=== PATIENT | female | born 1995 | race Caucasian/White ===

== ENCOUNTER 2016-04-16 09:59 | Emergency (ER) | payer BC ==
[2016-04-16 11:10] VITALS: BP 122/86
--- NOTE | 2016-04-16 12:47 | UC ---
Respiratory Complaint HPI - HPI Summary HPI Summary: pt p/w with c/o cough that started the night before last night. coughis painful( abd muscles, throat and chest), productive of yellow sputum. comes in spasms, has been associated with gagging and interferes with sleep. pt throat only hurts when coughing. pt's boss has "walking pna." - History of Current Complaint Chief Complaint: UCGeneralIllness Stated Complaint: COUGH Time Seen by Provider: 04/16/16 12:24 Hx Obtained From: Patient Hx Last Menstrual Period: 03/29/16 ?: Yes Onset/Duration: Sudden Onset, Lasting Days - 1.5, Still Present Timing: Constant Severity Initially: Moderate Severity Currently: Moderate Character: Cough: Productive Aggravating Factors: Exertion, Deep Breaths, Recumbent Position Alleviating Factors: Upright Position Associated Signs And Symptoms: Positive: Dyspnea, Pleuritic Chest Pain, URI. Negative: Fever, Chills, Wheezing, Hemoptysis, Dizziness, Edema, Nasal Congestion, Hoarseness, Sinus Discomfort - Allergies/Home Medications Allergies/Adverse Reactions: Allergies Allergy/AdvReac Type Severity Reaction Status Date / Time seasonal Allergy Congestion Uncoded 07/18/15 20:36 PMH/Surg Hx/FS Hx/Imm Hx Previously Healthy: Yes - Surgical History Surgical History: Yes Surgery Procedure, Year, and Place: wisdom teeth - Family History Known Family History: Negative: Cardiac Disease, Hypertension, Diabetes - Social History Occupation: Employed Full-time Alcohol Use: None Substance Use Type: None Smoking Status (MU): Never Smoked Tobacco - Immunization History Vaccination Up to Date: Yes Review of Systems Constitutional: Fatigue Skin: Negative Eyes: Negative ENT: Sore Throat, Ear Ache Respiratory: Shortness Of Breath, Cough Cardiovascular: Chest Pain - peuritic Gastrointestinal: Other - pt denies abd pain. states that she only has muscle pain from excessive coughing Genitourinary: Negative Motor: Negative Neurovascular: Negative Musculoskeletal: Negative Neurological: Headache - mild Psychological: Negative All Other Systems Reviewed And Are Negative: Yes Physical Exam Triage Information Reviewed: Yes Appearance: Well-Appearing, No Pain Distress, Well-Nourished Vital Signs: Initial Vital Signs Temp 98.1 F 04/16/16 11:06 Pulse 92 04/16/16 11:06 Resp 14 04/16/16 11:06 BP 122/86 04/16/16 11:06 Pulse Ox 100 04/16/16 11:06 Vital Signs Reviewed: Yes Eyes: Positive: Conjunctiva Clear. Negative: Discharge ENT: Positive: Hearing grossly normal, Pharynx normal, TMs normal. Negative: Nasal congestion, Nasal drainage, Tonsillar swelling, Tonsillar exudate, Trismus , Muffled/hoarse voice Dental Exam: Normal Neck: Positive: Supple, Nontender, No Lymphadenopathy Respiratory: Positive: Lungs clear, Normal breath sounds - equal, No respiratory distress, No accessory muscle use, Expiration - prolonged. Negative : Crackles, Rhonchi, Wheezing Cardiovascular: Positive: RRR, No Murmur Musculoskeletal Exam: Normal Neurological: Positive: Alert, Muscle Tone Normal Psychological: Positive: Age Appropriate Behavior Skin Exam: Normal UC Diagnostic Evaluation - Laboratory O2 Sat by Pulse Oximetry: 100 Respiratory Course/Dx - Differential Dx/Diagnosis Differential Diagnosis/HQI/PQRI: Bronchitis, Lower Resp Infection Provider Diagnoses: uri, bronchospasm Discharge - Discharge Plan Condition: Stable Disposition: HOME Prescriptions: Albuterol HFA INHALER* [Ventolin HFA Inhaler*] 2 puff INH Q4H PRN #1 mdi PRN Reason: Sob/Wheezing Benzonatate CAP* [Tessalon CAP*] 100 mg PO TID #30 cap guaiFENesin ER TAB [Mucinex*] 600 mg PO BID PRN #1 box PRN Reason: Cough guaiFENesin/CODIEN 100MG-10MG* [Robitussin AC 100Mg-10Mg*] 5 - 10 ml PO BEDTIME PRN #100 udc MDD 10ml PRN Reason: Cough Patient Education Materials: Upper Respiratory Infection (ED), Bronchospasm (ED ) Referrals: Alexandria France [Primary Care Provider] - 1 Week (Follow up in 1 week if not improving)
== END 2016-04-16 12:51 | disposition home or self-care (01) ==
LOC: UCCORT 09:59
DX: J06.9 Acute upper respiratory infection, unspecified (principal); J98.01 Acute bronchospasm; R53.83 Other fatigue
CPT/HCPCS: 99212; G0463

== ENCOUNTER 2016-07-05 21:46 | Emergency (ER) | payer BC ==
[2016-07-05 22:11] VITALS: BP 125/73
--- NOTE | 2016-07-05 22:21 | UC ---
Abdominal Pain Female HPI - HPI Summary HPI Summary: C/o upper abdominal pain that wraps around to back that started @ 1500 today. Pt states it was worse earlier & that it has gotten better. Says it worsens w/ deep breaths & movement. Had nausea earlier that has resolved. Pt says she has had this pain before & it resolved spontaneously. She ate [employer] prior to episode. pain is 5/10 - improved now. most pain is focused on RUQ> nop nausea, although she did feel sweaty and nauseated at time of attack. This is the 3rd episdoe she has had in past 2 months. Dad had his GB removed. - History of Current Complaint Chief Complaint: UCAbdominalPain Stated Complaint: ABDOMINAL PAIN Time Seen by Provider: 07/05/16 22:20 Hx Last Menstrual Period: 07/03/16 Allergies/Adverse Reactions: Allergies Allergy/AdvReac Type Severity Reaction Status Date / Time seasonal Allergy Congestion Uncoded 07/05/16 21:55 Home Medications: Home Medications NK [No Home Medications Reported] 07/05/16 [History Confirmed 07/05/16] PMH/Surg Hx/FS Hx/Imm Hx Previously Healthy: Yes - Surgical History Surgical History: Yes Surgery Procedure, Year, and Place: wisdom teeth - Family History Known Family History: Positive: Diabetes, Other - lung ca Negative: Cardiac Disease, Hypertension - Social History Alcohol Use: None Substance Use Type: None Smoking Status (MU): Never Smoked Tobacco - Immunization History Vaccination Up to Date: Yes Review of Systems Skin: Negative Eyes: Negative ENT: Negative Respiratory: Negative Cardiovascular: Negative Gastrointestinal: Abdominal Pain Genitourinary: Negative Motor: Negative Neurovascular: Negative Musculoskeletal: Negative Neurological: Negative Psychological: Negative All Other Systems Reviewed And Are Negative: Yes Physical Exam Triage Information Reviewed: Yes Appearance: Pain Distress - mild -moderate Vital Signs: Initial Vital Signs Temp 98.9 F 07/05/16 21:56 Pulse 91 07/05/16 21:56 Resp 20 07/05/16 21:56 BP 125/73 07/05/16 21:56 Pulse Ox 100 07/05/16 21:56 Vital Signs Reviewed: Yes Eye Exam: Normal ENT Exam: Normal ENT: Positive: Pharynx normal, TMs normal Dental Exam: Normal Neck exam: Normal Neck: Positive: Supple, Nontender, No Lymphadenopathy Respiratory Exam: Normal Respiratory: Positive: Lungs clear, Normal breath sounds, No respiratory distress, No accessory muscle use Cardiovascular Exam: Normal Cardiovascular: Positive: RRR, No Murmur, Pulses Normal, Brisk Capillary Refill Abdomen Description: Positive: Soft, Other: - No LUQ or epigastric or lower quadrant tendereness. She does have RUQ tenderness and + Varner's sign.. Negative: Bruit, CVA Tenderness (R), CVA Tenderness (L), Distended, Guarding, Hernia @, Hepatomegaly, Peritoneal Signs, Pulsatile Mass Bowel Sounds: Positive: Present Musculoskeletal Exam: Normal Neurological Exam: Normal Psychological Exam: Normal Skin Exam: Normal Abd Pain Female Course/Dx - Course Course Of Treatment: RUQ pain, likely cholecystitis. pain has improved. Offered ER but she declines and prefers to see how pain goes overnight as it has improved. She agrees to go to ER if she gets another attack or sx worsen or do not improve any further over the next few hours, vomits or develops fevers/ chills/nausea. She understood me well and is agreeable with this plan. - Differential Dx/Diagnosis Differential Diagnosis: Constipation, Gall Bladder Disease, Irritable Bowel Syndrome, Renal Colic Provider Diagnoses: RUQ abdominal pain, cholecystitis Discharge - Discharge Plan Condition: Stable Disposition: HOME Patient Education Materials: Cholecystitis (ED) Referrals: Alexandria France [Primary Care Provider] - 1 Day Additional Instructions: If your symptoms worsen or not better overnight or develop a fever, then you should go to the ER. If not, call your PCP in the morning to be seen as you will need at least an ultrasound.
[2016-07-05] MEDS ORDERED: Acetaminophen TAB* 325 MG PO ONE (22:29)
== END 2016-07-05 22:45 | disposition home or self-care (01) ==
LOC: UCCORT 21:46
DX: R10.11 Right upper quadrant pain (principal); K81.9 Cholecystitis, unspecified
CPT/HCPCS: 99211; A9270-GY; G0463

== ENCOUNTER 2017-02-19 10:17 | Emergency (ER) | payer BC ==
[2017-02-19 10:47] VITALS: BP 131/71
--- NOTE | 2017-02-19 11:31 | UC ---
Throat Pain/Nasal Aramis HPI - HPI Summary HPI Summary: TWO NIGHT S OF EAR ACHE R>L. SWOLLEN TONSILS AND HEADACHE. NO KNOWN FEVER. NO RASHES. NO ABDOMINAL PAIN. - History of Current Complaint Chief Complaint: UCRespiratory Stated Complaint: SORE THROAT EAR PAIN COUGH HEAVY CHEST Time Seen by Provider: 02/19/17 10:23 Hx Obtained From: Patient Hx Last Menstrual Period: 02/12/17 Onset/Duration: Gradual Onset, Lasting Days Severity: Moderate Pain Intensity: 6 Pain Scale Used: 0-10 Numeric Cough: Nonproductive Associated Signs & Symptoms: Positive: Hoarseness - Epiglottits Risk Factors Epiglottis Risk Factors: Negative - Allergies/Home Medications Allergies/Adverse Reactions: Allergies Allergy/AdvReac Type Severity Reaction Status Date / Time seasonal Allergy Congestion Uncoded 02/19/17 10:47 Home Medications: Home Medications Ibuprofen TAB* [Motrin TAB* 600 MG] 600 mg PO Q12H PRN 02/19/17 [History Confirmed 02/19/17] Pseudoephedrine HCl [Decongestant] 60 mg PO ONCE PRN 02/19/17 [History Confirmed 02/19/17] PMH/Surg Hx/FS Hx/Imm Hx - Surgical History Surgical History: Yes Surgery Procedure, Year, and Place: wisdom teeth,gallbladder 06/2016 at [place] - Family History Known Family History: Positive: None, Diabetes, Other - lung ca Negative: Cardiac Disease, Hypertension - Social History Occupation: Student Lives: With Family Alcohol Use: Rare Substance Use Type: None Smoking Status (MU): Never Smoked Tobacco - Immunization History Vaccination Up to Date: Yes Review of Systems Constitutional: Negative Skin: Negative Eyes: Negative ENT: Sore Throat, Ear Ache Respiratory: Cough Cardiovascular: Negative Gastrointestinal: Negative Genitourinary: Negative Motor: Negative Neurovascular: Negative Musculoskeletal: Negative Neurological: Headache Psychological: Negative Is Patient Immunocompromised?: No All Other Systems Reviewed And Are Negative: Yes Physical Exam Triage Information Reviewed: Yes Appearance: No Pain Distress, Well-Nourished, Ill-Appearing - MILDLY Vital Signs: Initial Vital Signs Temp 98.1 F 02/19/17 10:40 Pulse 88 02/19/17 10:40 Resp 20 02/19/17 10:40 BP 131/71 02/19/17 10:40 Pulse Ox 100 02/19/17 10:40 Vital Signs Reviewed: Yes Eye Exam: Normal ENT: Positive: Pharyngeal erythema, TM red - RIGHT, Tonsillar swelling Dental Exam: Normal Neck exam: Normal Neck: Positive: Supple, Nontender, No Lymphadenopathy Respiratory Exam: Normal Respiratory: Positive: Chest non-tender, Lungs clear, Normal breath sounds, No respiratory distress, No accessory muscle use Cardiovascular Exam: Normal Cardiovascular: Positive: RRR, No Murmur, Pulses Normal, Brisk Capillary Refill Abdominal Exam: Normal Abdomen Description: Positive: Nontender, No Organomegaly, Soft Musculoskeletal Exam: Normal Neurological Exam: Normal Psychological Exam: Normal Skin Exam: Normal Throat Pain/Nasal Course/Dx - Differential Dx/Diagnosis Differential Diagnosis/HQI/PQRI: Otitis Media, Tonsillitis Provider Diagnoses: RIGHT OTITIS MEDIA; TONSILITIS Discharge - Discharge Plan Condition: Stable Disposition: HOME Prescriptions: Amoxicillin/Clavulanate TAB* [Augmentin TAB 875*] 875 mg PO BID #20 tab Patient Education Materials: Otitis Media (ED), Tonsillitis (ED) Referrals: Alexandria France [Primary Care Provider] -
== END 2017-02-19 11:00 | disposition home or self-care (01) ==
LOC: UCCORT 10:17
DX: H66.91 Otitis media, unspecified, right ear (principal); J03.90 Acute tonsillitis, unspecified
CPT/HCPCS: 99212; G0463

== ENCOUNTER 2017-05-06 16:28 | Emergency (ER) | payer BC ==
[2017-05-06] MEDS ORDERED: Ondansetron ODT TAB* 4 MG PO ONE (17:11)
[2017-05-06] MEDS ORDERED: Ibuprofen TAB* 400 MG PO ONE (17:12)
[2017-05-06 17:13] VITALS: BP 116/65
--- NOTE | 2017-05-06 17:51 | UC ---
HPI Febrile Illness - HPI Summary HPI Summary: Pt here w/ flu-like sx x 3 days. Rhinorrhea, cough, ST, fever, ISIDRO, nausea. Denies vomiting, diarrhea, ab pain, rash, neck stiffness. Took acetaminophen at 15:00. Has not been eating/drinking d/t nausea. LMP end of March 2017. Last sexually active 3 months ago and has had normal periods since. Not trying to get and does not feel she could be . - History of Current Complaint Chief Complaint: UCGeneralIllness Time Seen by Provider: 05/06/17 17:40 Hx Obtained From: Patient Hx Last Menstrual Period: BEGINNING OF APR. Pain Intensity: 7 - Allergy/Home Medications Allergies/Adverse Reactions: Allergies Allergy/AdvReac Type Severity Reaction Status Date / Time seasonal Allergy Congestion Uncoded 05/06/17 17:01 Home Medications: Home Medications Acetaminophen [Tylenol Extra Strength] 1,000 mg PO Q6H PRN 05/06/17 [History Confirmed 05/06/17] D-Methorphan/PE/Acetaminophen [Daytime Cold-Flu Softgel] 2 each PO DAILY PRN [History Confirmed 05/06/17] PMH/Surg Hx/FS Hx/Imm Hx Previously Healthy: Yes - Surgical History Surgical History: Yes Surgery Procedure, Year, and Place: wisdom teeth,gallbladder 06/2016 at [place] - Family History Known Family History: Positive: None, Diabetes, Other - lung ca Negative: Cardiac Disease, Hypertension - Social History Occupation: Employed Full-time Lives: With Family Alcohol Use: Rare Substance Use Type: None Smoking Status (MU): Never Smoked Tobacco - Immunization History Vaccination Up to Date: Yes Review of Systems Constitutional: Fever, Fatigue ENT: Sore Throat, Ear Ache, Nasal Discharge Respiratory: Cough Cardiovascular: Negative Gastrointestinal: Nausea Motor: Negative Neurovascular: Negative Musculoskeletal: Arthralgia Neurological: Headache Psychological: Negative Is Patient Immunocompromised?: No All Other Systems Reviewed And Are Negative: Yes Physical Exam Triage Information Reviewed: Yes Appearance: No Pain Distress, Ill-Appearing - appears mildly ill, fatigued, Obese Vital Signs: Initial Vital Signs Temp 100.8 F 05/06/17 17:04 Pulse 120 05/06/17 17:04 Resp 24 05/06/17 17:04 BP 116/65 05/06/17 17:04 Pulse Ox 98 05/06/17 17:04 Eye Exam: Normal ENT: Positive: Hearing grossly normal, Pharynx normal - mucosa moist, Nasal congestion, TMs normal. Negative: Nasal drainage, Tonsillar swelling, Tonsillar exudate, Trismus, Muffled voice, Hoarse voice, Sinus tenderness Neck exam: Normal Neck: Positive: Supple, Nontender, No Lymphadenopathy Respiratory Exam: Normal Respiratory: Positive: Lungs clear, Normal breath sounds. Negative: Crackles, Rhonchi, Stridor, Wheezing Cardiovascular: Positive: No Murmur, Tachycardia Abdominal Exam: Normal Abdomen Description: Positive: Nontender, No Organomegaly, Soft Bowel Sounds: Positive: Present Musculoskeletal Exam: Normal Musculoskeletal: Positive: Strength Intact Neurological Exam: Normal Neurological: Positive: Alert Psychological Exam: Normal Skin Exam: Normal Re-Evaluation - Re-Evaluation First Eval Change: Improved - nausea resovled w/ zofran, other sx improving slightly w/ ibuprofen Course/Dx - Diagnoses Clinic Provider Diagnoses: influenza A Discharge - Discharge Plan Condition: Stable Disposition: HOME Prescriptions: Oseltamivir CAP* [Tamiflu CAP*] 75 mg PO BID #10 cap Patient Education Materials: Influenza (ED) Forms: *Work Release Referrals: Alexandria France [Primary Care Provider] - Additional Instructions: May try the following for comfort care: Perform nasal wash/netti pot 2 x day with 8 ounces of warm water + 1/4 teaspoon of salt or saline nasal spray as needed Perform throat gargles with warm salt water as needed Drink 60+ ounces of water daily Sleep 8+ hours per night Avoid Dairy and sugar Drink hot herbal/decaf tea with lemon & honey Drink chicken broth (preferably organic, free range chicken) Use a humidifier in your house, but especially near bed at night. You may also keep home temperature at 68F or less. Try a facial steam with or without eucalyptus essential oil or Sal's vapor rub for decongestion. Cough drops Avoid smoke, candles, perfumes/colonge, air fresheners, scented lotions, etc Consider taking Vitamin D3 5,000iu and Vitamin C 1,000mg every day during illness *If you develop shortness of breath, high fever, intractable vomiting/diarrhea, chest pain, dizziness or syncope, go to ED
== END 2017-05-06 17:59 | disposition home or self-care (01) ==
LOC: UCCORT 16:28
DX: J10.1 Influenza due to other identified influenza virus with other respiratory manifestations (principal)
CPT/HCPCS: 87502; 99211; A9270-GY; G0463

== ENCOUNTER 2017-06-08 19:28 | Emergency (ER) | payer BC, OTHER ==
[2017-06-08 20:35] VITALS: BP 139/65
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
== END 2017-06-08 21:33 | disposition home or self-care (01) ==
LOC: UCCORT 19:28
DX: S06.0X0A Concussion without loss of consciousness, initial encounter (principal); W50.0XXA Accidental hit or strike by another person, initial encounter; Y92.511 Restaurant or cafe as the place of occurrence of the external cause
CPT/HCPCS: 99211; G0463

== ENCOUNTER 2017-11-14 14:00 | Emergency (ER) | payer SELFPAY ==
[2017-11-14 15:48] VITALS: BP 156/70
--- NOTE | 2017-11-14 15:56 | UC ---
Lower Extremity/Ankle HPI - HPI Summary HPI Summary: C/O right foot pain with dropping a piece of wood on it 2 days ago. - History of Current Complaint Chief Complaint: UCLowerExtremity Stated Complaint: RIGHT FOOT INJURY Time Seen by Provider: 11/14/17 15:51 Hx Obtained From: Patient Hx Last Menstrual Period: 10/24/17 ?: No Onset/Duration: Sudden Onset - Wednesday night, Still Present Severity Initially: Severe Severity Currently: Mild Pain Intensity: 3 Aggravating Factor(s): Standing, Ambulation Alleviating Factor(s): Rest, Elevation Able to Bear Weight: Yes - Allergies/Home Medications Allergies/Adverse Reactions: Allergies Allergy/AdvReac Type Severity Reaction Status Date / Time No Known Allergies Allergy Verified 11/14/17 15:48 PMH/Surg Hx/FS Hx/Imm Hx Previously Healthy: Yes - Surgical History Surgical History: Yes Surgery Procedure, Year, and Place: [facility] 06/2016 at [place] - Family History Known Family History: Positive: Hypertension, Diabetes, Other - lung ca Negative: Cardiac Disease - Social History Occupation: Employed Full-time Lives: Alone Alcohol Use: Occasionally Substance Use Type: None Smoking Status (MU): Never Smoked Tobacco - Immunization History Vaccination Up to Date: Yes Review of Systems ENT: Nasal Discharge - with seasonal allergies. Musculoskeletal: Arthralgia - right foot Neurological: Paresthesia Is Patient Immunocompromised?: No All Other Systems Reviewed And Are Negative: Yes Physical Exam Triage Information Reviewed: Yes Appearance: Pain Distress - moderate, Obese Vital Signs: Initial Vital Signs Temp 97.5 F 11/14/17 15:42 Pulse 95 11/14/17 15:42 Resp 16 11/14/17 15:42 BP 156/70 11/14/17 15:42 Pulse Ox 99 11/14/17 15:42 Vital Signs Reviewed: Yes Eyes: Positive: Conjunctiva Clear Neck exam: Normal Respiratory Exam: Normal Cardiovascular Exam: Normal Musculoskeletal: Positive: Strength Intact, ROM Intact, Other: - Tender lateral right foot over the 5th metatarsal, shooting electric type pain up and down the leg Neurological: Positive: Other: - Hypersensitive to pinprick right lateral foot distal to the trauma into the 4th and 5th toes. Psychological Exam: Normal Skin Exam: Normal Lower Extremity Course/Dx - Differential Dx/Diagnosis Differential Diagnosis/HQI/PQRI: Contusion, Fracture (Closed), Sprain Provider Diagnoses: Contusion right foot. Neuritis Discharge - Sign-Out/Discharge Documenting (check all that apply): Patient Departure All imaging exams completed and their final reports reviewed: No Studies - Discharge Plan Condition: Stable Disposition: HOME Prescriptions: Gabapentin CAP(*) [Neurontin 300 CAP(*)] 300 mg PO BEDTIME #30 cap Patient Education Materials: Contusion in Adults (ED) Referrals: Alexandria France [Primary Care Provider] - Additional Instructions: GABAPENTIN: Gabapentin is an anti-seizure medication that is more often used for nerve pain. It helps to stabilize the nerve to stop the pain. Its primary side effect is sedation which will improve over time. Most people will start with only one capsule 1 to 2 hours before bed, but if your pain is more severe you may want to start with one capsule twice a day. If the pain is still an issue after another 1-2days the dose may be increased to a maximum of 1 capsule 3 times a day. Decrease the dose by one capsule a day if there is excessive sedation or it is not working. You can also decrease it to discontinue it if the pain is resolving. Nerve Contusion: A bruised nerve causes the nerve to be irritated and extra sensitive to all sensations. Ice can make it feel worse. Nain wraps frequently aren't tolerated either. It may take weeks to resolve. - Billing Disposition and Condition Condition: STABLE Disposition: Home
== END 2017-11-14 16:10 | disposition home or self-care (01) ==
LOC: UCCORT 14:00
DX: S90.31XA Contusion of right foot, initial encounter (principal); W20.8XXA Other cause of strike by thrown, projected or falling object, initial encounter; Y93.9 Activity, unspecified; Y92.9 Unspecified place or not applicable; M79.2 Neuralgia and neuritis, unspecified
CPT/HCPCS: 99212; G0463

== ENCOUNTER 2018-04-20 16:06 | Emergency (ER) | payer BC ==
[2018-04-20 16:31] VITALS: BP 128/72
[2018-04-20 17:23] LABS: Influenza A Molecular NEGATIVE (Negative); Influenza B Molecular NEGATIVE (Negative)
--- NOTE | 2018-04-20 17:56 | UC ---
UC General HPI - HPI Summary HPI Summary: 2 day hx cough, head and chest congestion, sob. + nausea, body aches, and chills x 2 days. No asthma. - History of Current Complaint Chief Complaint: UCGeneralIllness Stated Complaint: FEVER,COLD SWEATS,COUGH,NAUSEA Time Seen by Provider: 04/20/18 17:50 Hx Obtained From: Patient Hx Last Menstrual Period: 04/18/18 Timing: Constant Pain Intensity: 5 Associated Signs & Symptoms: Negative: Fever - Allergy/Home Medications Allergies/Adverse Reactions: Allergies Allergy/AdvReac Type Severity Reaction Status Date / Time No Known Allergies Allergy Verified 04/20/18 16:28 PMH/Surg Hx/FS Hx/Imm Hx - Additional Past Medical History Additional PMH: PCOS - Surgical History Surgical History: Yes Surgery Procedure, Year, and Place: gallbladder 06/2016 at [place] - Family History Known Family History: Positive: Hypertension, Diabetes, Other - lung ca Negative: Cardiac Disease - Social History Alcohol Use: Occasionally Substance Use Type: None Smoking Status (MU): Never Smoked Tobacco Have You Smoked in the Last Year: No - Immunization History Vaccination Up to Date: Yes Review of Systems All Other Systems Reviewed And Are Negative: Yes Constitutional: Positive: Chills Skin: Positive: Negative Eyes: Positive: Negative ENT: Positive: Sinus Congestion Respiratory: Positive: Shortness Of Breath, Cough Cardiovascular: Positive: Negative Gastrointestinal: Positive: Nausea Genitourinary: Positive: Negative Motor: Positive: Negative Neurovascular: Positive: Negative Musculoskeletal: Positive: Myalgia Neurological: Positive: Negative Psychological: Positive: Negative Is Patient Immunocompromised?: No Physical Exam Triage Information Reviewed: Yes Appearance: Well-Appearing Vital Signs: Initial Vital Signs Temp 97.9 F 04/20/18 16:27 Pulse 97 04/20/18 16:27 Resp 16 04/20/18 16:27 BP 128/72 04/20/18 16:27 Pulse Ox 99 04/20/18 16:27 Vital Signs Reviewed: Yes Eyes: Positive: Conjunctiva Clear ENT: Positive: Pharynx normal, Nasal congestion, TMs normal. Negative: Nasal drainage, Sinus tenderness Neck: Positive: Supple, Nontender, No Lymphadenopathy Respiratory: Positive: No respiratory distress, Decreased breath sounds. Negative: Crackles, Rhonchi, Wheezing Cardiovascular: Positive: RRR, No Murmur Abdomen Description: Positive: Nontender, No Organomegaly, Soft Bowel Sounds: Positive: Present Musculoskeletal: Positive: ROM Intact Neurological: Positive: Alert Psychological: Positive: Age Appropriate Behavior Skin Exam: Normal Diagnostics - Laboratory Diagnostic Studies Completed/Ordered: rapid flu=negative Course/Dx - Differential Dx - Multi-Symptom Differential Diagnoses: Other - uri, bronchitis, influenza, pneumonia. - Diagnoses Provider Diagnosis: URI (upper respiratory infection), Bronchitis Discharge - Sign-Out/Discharge Documenting (check all that apply): Patient Departure All imaging exams completed and their final reports reviewed: No Studies - Discharge Plan Condition: Stable Disposition: HOME Prescriptions: Albuterol HFA INHALER* [Ventolin HFA Inhaler*] 2 puff INH Q6H #1 mdi Patient Education Materials: Upper Respiratory Infection (DC), Acute Bronchitis (ED) Referrals: Alexandria France [Primary Care Provider] - 7 Days - Billing Disposition and Condition Condition: STABLE Disposition: Home
== END 2018-04-20 18:22 | disposition home or self-care (01) ==
LOC: UCCORT 16:06
DX: J06.9 Acute upper respiratory infection, unspecified (principal); J40 Bronchitis, not specified as acute or chronic; M79.10 Myalgia, unspecified site; R11.0 Nausea
CPT/HCPCS: 99212; G0463

== ENCOUNTER 2018-10-28 12:01 | Emergency (ER) | payer BC ==
[2018-10-28 12:24] VITALS: BP 146/95
--- NOTE | 2018-10-28 12:34 | UC ---
Abdominal Pain Female HPI - HPI Summary HPI Summary: 22 year old with abdominal pain. c/o L sided abdominal pain since she woke up wed morning. She indicates pain as being on her lower L side and radiates into her back and lower abdomen. Denies any urinary symptoms or fever. Last BM was last night which she states "was normal" for her. Pain worse with pressure and taking a deep breath. She states a hx of PCOS with irregular menses, had spotting bleeding on Tues and none since. Patient states pain is about a 6 out of 10. Some mild nausea but no vomiting. She states the pain is on her left lower quadrant as well as her left lateral lower flank. It has started to radiate across her lower abdomen. It has been worsening since yesterday. She has been some alternating diarrhea with constipation the last few days. [ End ] - History of Current Complaint Chief Complaint: UCAbdominalPain Stated Complaint: LEFT SIDE ABD/BACK PAIN X 3 DAYS Time Seen by Provider: 10/28/18 12:25 Hx Obtained From: Patient Hx Last Menstrual Period: 10/25/18 Onset/Duration: Gradual Onset Pain Intensity: 6 Allergies/Adverse Reactions: Allergies Allergy/AdvReac Type Severity Reaction Status Date / Time No Known Allergies Allergy Verified 10/28/18 12:24 Home Medications: Home Medications Naproxen Sodium [Naproxen 550 mg tab] 550 mg PO ONCE PRN 10/28/18 [History Confirmed 10/28/18] PMH/Surg Hx/FS Hx/Imm Hx Previously Healthy: Yes Other GI/ History: PCOS - Surgical History Surgical History: Yes Surgery Procedure, Year, and Place: [facility] 06/2016 at [place] - Family History Known Family History: Positive: Hypertension, Diabetes, Other - lung ca Negative: Cardiac Disease - Social History Alcohol Use: Occasionally Substance Use Type: None Smoking Status (MU): Never Smoked Tobacco Have You Smoked in the Last Year: No - Immunization History Vaccination Up to Date: Yes Review of Systems All Other Systems Reviewed And Are Negative: Yes Constitutional: Positive: Chills. Negative: Fever Gastrointestinal: Positive: Abdominal Pain, Diarrhea, Nausea. Negative: Vomiting Genitourinary: Positive: Negative Is Patient Immunocompromised?: No Physical Exam Triage Information Reviewed: Yes Appearance: Well-Appearing, No Pain Distress, Well-Nourished Vital Signs: Initial Vital Signs Temp 97.7 F 10/28/18 12:17 Pulse 100 10/28/18 12:17 Resp 16 10/28/18 12:17 BP 146/95 10/28/18 12:17 Pulse Ox 100 10/28/18 12:17 Vital Signs Reviewed: Yes Eye Exam: Normal ENT Exam: Normal Dental Exam: Normal Neck exam: Normal Neck: Positive: 1 Respiratory Exam: Normal Cardiovascular Exam: Normal Abdominal Exam: Normal Abdomen Description: Positive: No Organomegaly, Soft, Other: - Mild left lateral abdominal discomfort to palpation. bilateral lower quadrant tenderness to palpation but worse and moderate at left lower quadrant. No pain to palpation of the upper quadrants. Normal bowel sounds. No rebound tenderness.. Negative: CVA Tenderness (R), CVA Tenderness (L), Distended, Guarding Musculoskeletal Exam: Normal Neurological Exam: Normal Psychological Exam: Normal Skin Exam: Normal Abd Pain Female Course/Dx - Course Course Of Treatment: Based on symptoms persisting and worsening there is concern for potential diverticulitis or Abscess. Also Thought about Musculoskeletal Injury but She Is Becoming Increasingly More Uncomfortable in the Room. With Left Lower Quadrant Tenderness a CT Scan Was Ordered to Evaluate for Diverticulitis. CT shows diverticulitis. Treat at this time. Given antibiotics. She is aware of side effects of antibiotics and agreeable to plan. If symptoms worsen go to emergency room. - Differential Dx/Diagnosis Differential Diagnosis: Appendicitis, Constipation, Diverticulitis, Irritable Bowel Syndrome, Ovarian Cyst, Peptic Ulcer Disease, Renal Colic Provider Diagnosis: Diverticulitis Discharge - Sign-Out/Discharge Documenting (check all that apply): Patient Departure All imaging exams completed and their final reports reviewed: Yes - Discharge Plan Condition: Good Disposition: HOME Prescriptions: Ciprofloxacin TAB* [Cipro 500 MG TAB*] 500 mg PO BID #20 tab metroNIDAZOLE [Flagyl 500 MG TAB] 500 mg PO TID #30 tab Patient Education Materials: Diverticulitis (ED) Forms: *Work Release Referrals: Alexandria France [Primary Care Provider] - 3 Days - Billing Disposition and Condition Condition: GOOD Disposition: Home
[2018-10-28] MEDS ORDERED: Ketorolac INJ* 30 MG/ML 1 ML VIAL IM ONE (13:05)
== END 2018-10-28 14:14 | disposition home or self-care (01) ==
LOC: UCCORT 12:01
DX: K57.32 Diverticulitis of large intestine without perforation or abscess without bleeding (principal)
CPT/HCPCS: 74176; 81003; 84702; 87086; 96372; 99212; G0463; J1885

== ENCOUNTER 2019-05-10 15:24 | Emergency (ER) | payer BC ==
[2019-05-10 16:10] VITALS: BP 130/81
[2019-05-10 16:29] LABS: Influenza B Molecular POSITIVE (Negative)
--- NOTE | 2019-05-10 16:45 | UC ---
FLU HPI - HPI Summary HPI Summary: 23 y/o female presents to the urgent care c/o sore throat, "nasty cough", B/L ears pressure, nasal congestion, upset stomach for the past 2 days. She has taken Dayquill PO to alleviate symptoms. Pt has been drinking fluids, but has decrease appetite. Sore throat and body aches is 5/10. Pt denies dizziness, SOB , chest pain, rash, neck pain,N/V/D. - History of Current Complaint Chief Complaint: UCGeneralIllness Stated Complaint: COUGH,B/L EAR COMPLAINT Time Seen by Provider: 05/10/19 16:41 Hx Obtained From: Patient Hx Last Menstrual Period: 05/02/19 ?: No Onset/Duration: Gradual Onset, Lasting Days - 2 days, Still Present Severity Currently: Mild Severity Initially: Moderate Pain Intensity: 5 - sore throat/body aches Pain Scale Used: 0-10 Numeric Associated Signs & Symptoms: Positive: Myalgia, Cough - dry, Sore Throat, Nasal Congestion - clear, Headache, Diarrhea - mild - Risk Factors Influenza Risk Factors: Negative - Allergy/Home Medications Allergies/Adverse Reactions: Allergies Allergy/AdvReac Type Severity Reaction Status Date / Time No Known Allergies Allergy Verified 05/10/19 16:10 Home Medications: Home Medications Oseltamivir CAP* [Tamiflu CAP*] 75 mg PO BID #10 cap 05/10/19 [Rx] PMH/Surg Hx/FS Hx/Imm Hx Previously Healthy: Yes Other Endocrine History: PCOS - Surgical History Surgical History: Yes Surgery Procedure, Year, and Place: gallbladder 06/2016 at [place] - Family History Known Family History: Positive: Hypertension, Diabetes, Other - lung ca Negative: Cardiac Disease - Social History Occupation: Employed Full-time Lives: With Family Alcohol Use: Occasionally Substance Use Type: None Smoking Status (MU): Never Smoked Tobacco Have You Smoked in the Last Year: No - Immunization History Vaccination Up to Date: Yes Review of Systems All Other Systems Reviewed And Are Negative: Yes Constitutional: Positive: Chills, Fatigue, Other - bidy aches Skin: Positive: Negative Eyes: Positive: Negative ENT: Positive: Sore Throat, Nasal Discharge - clear, Sinus Congestion Respiratory: Positive: Cough - dry Cardiovascular: Positive: Negative Gastrointestinal: Positive: Negative Genitourinary: Positive: Negative Motor: Positive: Negative Neurovascular: Positive: Negative Musculoskeletal: Positive: Myalgia Neurological/Mental Status: Positive: Headache Psychological: Positive: Negative Is Patient Immunocompromised?: No Physical Exam - Summary Physical Exam Summary: VITAL SIGNS: Reviewed. GENERAL: Patient is a well developed and nourished obese female who is sitting comfortably in the examining table. Patient is not in any acute respiratory distress. HEAD AND FACE: No signs of trauma. No ecchymosis, hematomas or skull depressions. No sinus tenderness. EYES: PERRLA, EOMI x 2, No injected conjunctiva, no nystagmus. No photophobia. EARS: Hearing grossly intact. Ear canals and tympanic membranes are within normal limits. MOUTH: Positive pharynx with mild erythema, no exudates, No B/L tonsillar enlargement , no exudate. Uvula in midline. edematous nasal mucosa w/ clear nasal discharge, clear PND NECK: Supple, trachea is midline, Positive anterior cervical lymphadenopathy, no JVD, no carotid bruit, no c-spine tenderness, neck with full ROM. No meningeal signs, no Kernig's or brudzinskis signs. CHEST: Symmetric, no tenderness at palpation LUNGS: Clear to auscultation bilaterally. No wheezing or crackles. CVS: Regular rate and rhythm, S1 and S2 present, no murmurs or gallops appreciated. ABDOMEN: Soft, non-tender. No signs of distention. No rebound no guarding, and no masses palpated. Bowel sounds are normal. EXTREMITIES: FROM in all major joints, no edema, no cyanosis or clubbing. NEURO: Alert and oriented x 3. No acute neurological deficits. Pt follows commands. SKIN: Dry and warm Triage Information Reviewed: Yes Vital Signs: Initial Vital Signs Temp 97.8 F 05/10/19 16:07 Pulse 85 05/10/19 16:07 Resp 18 05/10/19 16:07 BP 130/81 05/10/19 16:07 Pulse Ox 100 05/10/19 16:07 Flu Course/Dx - Course Course Of Treatment: 23 y/o female presents to the urgent care c/o sore throat, "nasty cough", B/L ears pressure, nasal congestion, upset stomach for the past 2 days. She has taken Dayquill PO to alleviate symptoms. Pt has been drinking fluids, but has decrease appetite. Sore throat and body aches is 5/10. Pt denies dizziness, SOB , chest pain, rash, neck pain,N/V/D. Hx obtained. Pt with URI on examination. Rapid strep ordered, result: negative.Influenza A&B ordered: result: Influenza B positive.Pt Rx Tamiflu and ibuprofen PO to alleviate symptoms. Advised on hand washing and wearing a mask to avoid spreading. Pt advised to rest, increase fluid intake, eat well and avoid strenuous exercise. .If symptoms do not improve or worsen advised to return to the urgent care or f/u with her PCP for further evaluation and treatment. Pt understood and agreed - Differential Dx/Diagnosis Differential Diagnosis/HQI/PQRI: Bronchitis, Influenza, Pneumonia, Upper Respiratory Infection Provider Diagnosis: Influenza B Discharge ED - Sign-Out/Discharge Documenting (check all that apply): Patient Departure - D/C home All imaging exams completed and their final reports reviewed: No Studies - Discharge Plan Condition: Stable Disposition: HOME Prescriptions: Oseltamivir CAP* [Tamiflu CAP*] 75 mg PO BID #10 cap Patient Education Materials: Influenza (ED) Forms: *Work Release Referrals: Alexandria France [Primary Care Provider] - 3 Days Additional Instructions: 1- Please take the full course of the antiviral to avoid resistance. Encourage hand washing and wear a mask to avoid spreading. 2-Please continue taking Tylenol PO q6-8hrs prn as instructed after meals to alleviate fever, and sore throat. Increase fluid intake, eat well, rest and avoid strenuous exercise 3-If symptoms do not improve or worsen please return to the urgent care or f/u with your PCP in 2 days for further evaluation and treatment. - Billing Disposition and Condition Condition: STABLE Disposition: Home
== END 2019-05-10 17:04 | disposition home or self-care (01) ==
LOC: UCCORT 15:24
DX: J10.1 Influenza due to other identified influenza virus with other respiratory manifestations (principal)
CPT/HCPCS: 87651; 99212; G0463

== ENCOUNTER 2023-11-03 22:07 | Inpatient (IN) ==
[2023-11-03 23:11] LABS: ABS Basophils 0.2 10^3/uL (0.0-0.1); ABS Eosinophils 0.1 10^3/uL (0.0-0.5); ABS Lymphocytes 3.6 10^3/uL (1.0-4.8); ABS Monocytes 0.7 10^3/uL (0.0-0.9); ABS Neutrophils 6.6 10^3/uL (1.5-7.6); Eosinophil % 1.1 %; Hematocrit 38.1 % (35-45); Hemoglobin 12.9 g/dL (11.5-14.3); Lymphocyte % 31.8 %; Mean Corpuscular Hemoglobin 28.5 pg (27-33); Mean Corpuscular Hgb Conc 33.9 g/dL (31-36); Mean Corpuscular Volume 84.1 fL (80-97); Mean Platelet Volume 8.4 fL (7.5-11.2); Platelet Count 348 10^3/uL (150-450); Red Blood Count 4.53 10^6/uL (3.63-4.92); Red Cell Distribution Width 14.3 % (12-17); White Blood Count 11.2 10^3/uL (3.8-11.8)
[2023-11-03 23:37] LABS: Urine Benzodiazepine Screen None Detected (None Detect); Urine Cannabinoids Screen None Detected (None Detect); Urine Opiates Screen None Detected (None Detect)
[2023-11-03 23:38] LABS: ALT 54 U/L (7-52); AST 29 U/L (13-39); Acetaminophen < 15 mcg/mL; Albumin 4.8 g/dL (3.2-5.2); Albumin/Globulin Ratio 1.7 (1-3); Alcohol, S < 13 mg/dL (<13); Alkaline Phosphatase 60 U/L (35-149); Anion Gap 9 mmol/L (2-16); Blood Urea Nitrogen 11 mg/dL (6-24); CO2 Carbon Dioxide 23 mmol/L (22-32); Calcium 9.8 mg/dL (8.6-10.3); Chloride 105 mmol/L (101-111); Globulin 2.9 g/dL (2-4); Glucose 99 mg/dL (70-100); Salicylate < 2.50 mg/dL (<30); Sodium 137 mmol/L (135-145); Total Bilirubin 0.3 mg/dL (0.2-1.0); Total Protein 7.7 g/dL (6.4-8.9)
[2023-11-03 23:42] LABS: Urine Appearance Turbid; Urine Specific Gravity 1.021 (1.002-1.030)
[2023-11-03 23:43] LABS: Urine Color Red
[2023-11-03 23:44] LABS: HCG Pregnancy 1.95 mIU/mL
[2023-11-03 23:45] LABS: eGFR CKD-EPI 103.5 (>60)
[2023-11-03 23:53] LABS: TSH Ultra Thyroid Stim Horm 2.09 mcIU/mL (0.34-5.60)
[2023-11-04 00:06] LABS: Urine Bacteria Absent /HPF (Absent); Urine Red Blood Cell 3+(>10/hpf) /HPF (0-Trace); Urine White Blood Cell 3+(>20/hpf) /HPF (0-Trace)
[2023-11-04] MEDS ORDERED: Al Hydrox/Mg Hydrox/Simet LIQ 30 ML UDC PO PRN (10:12)
[2023-11-04] MEDS ORDERED: Ondansetron ODT 4 mg TAB 4 MG TAB SL PRN (13:42)
[2023-11-04] MEDS ORDERED: Ketorolac 10 mg TAB (NF) PO PRN (13:42)
[2023-11-05 08:07] LABS: HDL Cholesterol 27.2 mg/dL
[2023-11-05] MEDS ORDERED: Iodixanol (CONTRAST) 320 MG/ML 100 ML SDV IV ONE (13:04)
[2023-11-07] MEDS ORDERED: Polyethylene Glycol 3350 17 GM PACKET PO PRN (06:06)
[2023-11-09 09:53] VITALS: BP 127/82
== END 2023-11-09 17:20 | disposition home or self-care (01) | DRG 755 ==
LOC: ED 22:07 → EDHOLD 11-04 10:12 → BSU 11-04 11:45
PROVIDERS: ADMIT Psychiatry & Neurology Psychiatry; ATTEND Psychiatry & Neurology Psychiatry